=== PATIENT | female | born 1975 | race Caucasian/White ===

== ENCOUNTER 2021-09-16 06:23 | Day surgery (SDC) | payer OTHER ==
[~2021-09-16] VITALS: Ht 162.6 cm; Wt 88.9 kg
[~2021-09-16 06:23] MED LIST: Ativan1 MG; PSEUDOEPHEDRINE30 M1 PO; VITAMIN D3 MA125 MCG PO
[2021-09-16] MEDS ORDERED: ALBU90OI INH (06:57)
[2021-09-16] MEDS ORDERED: CYCL10 PO (06:58)
[2021-09-16] MEDS ORDERED: THYR60 PO (06:59)
--- NOTE | 2021-09-16 08:00 | NUR ---
09/16/21 0800 Amairani Nick 1 MG EPI ADDED TO THE FIRST BAG OF LR PER [facility] BUPIVACAINE 0.5% 30 MLS MIXED & VERIFIED IN OR WITH EPI 0.15 ML TO MAKE BUPIVACAINE 0.5% 1:200,000 [facility] BY DR REHMAN.
== END 2021-09-16 10:01 | disposition home or self-care (01) ==
LOC: ORSCSDS 06:23
PROVIDERS: Orthopaedic Surgery
PROC: 0SBD4ZZ Excision of Left Knee Joint, Percutaneous Endoscopic Approach (ICD-10-PCS; principal; 2021-09-16 07:30)
DX: S83.242A Other tear of medial meniscus, current injury, left knee, initial encounter (principal); M94.262 Chondromalacia, left knee; J45.909 Unspecified asthma, uncomplicated; Z79.899 Other long term (current) drug therapy
CPT/HCPCS: J0171; J0690; J1100; J1885; J2250; J2405; J2704; J3010; J7120